=== PATIENT | female | born 1995 | race Caucasian/White ===

== ENCOUNTER 2017-07-26 17:55 | Emergency (ER) | payer BC, OTHER ==
[~2017-07-26] VITALS: Ht 165.1 cm; Wt 84.9 kg
[~2017-07-26 17:55] MED LIST: CHOL100010 PO; CYAN100T PO
[2017-07-26 17:58] VITALS: TEMP 36.7; Ht 165.1 cm; Wt 84.9 kg
[2017-07-26] MEDS ORDERED: KETOROLAC TROMETHAMINE 30 MG/ML VIAL IV STA (18:14)
[2017-07-26] MEDS ORDERED: DiphenhydrAMINE HCL 50 MG/ML VIAL IV STA (18:14)
[2017-07-26] MEDS ORDERED: PROCHLORPERAZINE 5 MG/ML 2 ML VIAL IV STA (18:14)
[2017-07-26] MEDS ORDERED: SODIUM CHLORIDE 0.9% 1000ML 1,000 ML IV ONE (18:15)
[2017-07-26] MEDS ORDERED: DEXAMETHASONE **PF** INJ 10 MG/ML VIAL IV ONE (18:15)
[2017-07-26] MEDS ORDERED: SUMA50TA15 PO (18:16)
[2017-07-26] MEDS ORDERED: BCPILLS PO (18:16)
[2017-07-26] MEDS ORDERED: HYDR-5688 PO (18:16)
[2017-07-26] MEDS ORDERED: FLUO10CA48 PO (18:16)
[2017-07-26 19:07] LABS: BASO % 0.6 %; BASO ABS # 0.05 K/uL (0-0.2); COMPLETE YES; EOS % 1.8 %; HEMATOCRIT 41.4 % (37-47); IG% 0.3 %; LYMPH % 25.2 %; LYMPH ABS # 2.27 K/uL (1.2-3.4); MEAN CELL VOLUME 86.8 fL (80-100); MEAN CORPUSCULAR HEMOGLOBIN 30.6 pg (25-34); MEAN CORPUSCULAR HGB CONC 35.3 g/dl (32-36); MONO % 7.2 %; NEUT % 64.9 %; PLATELET COUNT 213 K/uL (130-400); RED BLOOD COUNT 4.77 M/uL (4.2-5.4)
[2017-07-26 19:11] LABS: BUN/CREATININE RATIO 11.5 (10-20); CREATININE 0.96 mg/dl (0.60-1.20); POTASSIUM 3.6 mmol/L (3.5-5.1)
[2017-07-26 19:19] LABS: ALB/GLOB RATIO 0.9 (0.9-2); THYROID STIMULATING HORMONE 1.17 uIu/ml (0.300-4.500)
[2017-07-26 20:30] LABS: LYME DISEASE AB IGG NEG (NEG)
[2017-07-26 20:33] LABS: LYME DISEASE AB IGM EQUIVOCAL (NEG)
[2017-07-26] MEDS ORDERED: CEFTRIAXONE SOD INJ 1 GM ADDVIAL IV STA (20:45)
[2017-07-26 20:50] LABS: PREG INTERNAL NEGATIVE QC NEG CLEAR BACKGROUND
[2017-07-26 20:51] LABS: PREG INTERNAL POSITIVE QC POS CONTROL LINE; URINE APPEARANCE CLEAR (CLEAR); URINE BILIRUBIN NEG (NEG); URINE COLOR YELLOW; URINE EPITHELIAL CELL AUTO 0-5 /lpf (0-5); URINE NITRITE NEG (NEG); URINE SPECIFIC GRAVITY 1.005 (1.000-1.030); UROBILINOGEN NEG (NEG); ZZUR CULT IF INDIC CLEAN CATCH NO
[2017-07-26 20:52] LABS: MANUAL MICROSCOPIC REQUIRED? NO; REVIEW REQ? NO
--- NOTE | 2017-07-26 20:56 | DIAGNOSTIC IMAGING REPORT ---
HEAD CT NONCONTRAST CT DOSE: 537.48 mGy.cm HISTORY: Atypical headache TECHNIQUE: Multiaxial CT images of the head were performed without the use of intravenous contrast. Automated exposure control was utilized for this study. A dose lowering technique was utilized adhering to the principles of ALARA. Comparison: None. Findings: The paranasal sinuses and mastoid air cells are clear. The calvarium and skull base are intact. The ventricles and sulci are within normal limits. There is no mass, hematoma, midline shift, or acute infarct. Impression: No acute intracranial abnormality. Electronically signed by: Fuentes Gutierres M.D. 07/26/2017 8:55 PM Dictated Date/Time: 07/26/2017 8:48 PM
[2017-07-26 21:37] VITALS: BP 124/90; PULSE 78; O2SAT 97
[2017-07-26] MEDS ORDERED: DOXY100C PO (21:41)
--- NOTE | 2017-07-26 22:40 | EMERGENCY ROOM VISIT NOTE ---
History First contact with patient: 17:59 Chief Complaint: HEADACHE Stated Complaint: CASTORENA ACROSS EYES,BACK OF HEAD History of Present Illness The patient is a 22 year old female who presents to the Emergency Room with complaints of headache symptoms slowly worsening over the past several days. The patient states that she has had headache like symptoms off and on for the past few weeks. She has followed with her primary care physician for this, and was given Imitrex. She took the Imitrex both yesterday and today without relief. The patient has not had fever, chills, neck pain, chest pain, chest tightness, or shortness of breath. No vision changes or paresthesias. She does not recall injury or trauma and considers herself otherwise usually healthy. She does take Prozac, but has been on this medication for several months at the same dose. She denies chance of . She has not had previous imaging of her head, but does report there is some family history of migraine headaches. She rates her discomfort an 8/10. Review of Systems More than 10 systems were reviewed and otherwise negative with the exception of history of present illness. Past Medical/Surgical History No chronic medical disease Family History No pertinent family history Social History Smoking Status: Never Smoker Housing Status: lives with family Current/Historical Medications Scheduled Control Pills ( Control Pills), 1 TAB PO DAILY Doxycycline Hyclate (Vibramycin), 100 MG PO BID Fluoxetine (Prozac), 10 MG PO DAILY Scheduled PRN Hydrocodone/Acetaminophen 5MG/325MG ([place] 5MG/325MG), 1 TAB PO UD PRN for Pain Sumatriptan Succinate (Imitrex), 1 TAB PO PRN PRN for Migraine Physical Exam Vital Signs Date Time Temp Pulse Resp B/P (MAP) Pulse Ox O2 Delivery O2 Flow Rate FiO2 07/26/17 21:37 78 18 124/90 97 Room Air 07/26/17 20:56 72 20 129/98 98 Room Air 07/26/17 19:40 80 20 136/87 99 Room Air 07/26/17 17:58 36.7 80 20 156/117 99 Room Air Physical Exam VITALS: Vitals are noted on the nurse's note and reviewed by myself. Vital signs initially with hypertension that improved under our care GENERAL: Well-developed, well-nourished, white female who appears mildly uncomfortable but cooperative. HEAD: Normocephalic atraumatic. EARS: External ear normal. External auditory canals clear, tympanic membranes pearly colbert without erythema or effusion bilaterally. EYES: Pupils equal round and reactive to light and accommodation. Conjunctivae without injection, sclerae without icterus. Extraocular movements intact. NOSE: Patent, turbinates without inflammation or discharge. MOUTH: Mucous membranes moist. Tonsils are not enlarged. Pharynx without erythema, blood, or exudate. Uvula midline. Airway patent. NECK: Supple without nuchal rigidity. No lymphadenopathy. No thyromegaly. Cervical spine is nontender. No meningismus minutes. HEART: Regular rate and rhythm without murmurs gallops or rubs. LUNGS: Clear to auscultation bilaterally without wheezes, rales or rhonchi. No retractions or accessory muscle use. MUSCULOSKELETAL: No muscle atrophy, erythema, or edema noted. Full range of motion without joint tenderness in all extremities. NEURO: Patient was alert and oriented to person place and time. CN II through XII intact. Normal Romberg. Normal finger to nose. Normal rapid alternating movements. Medical Decision & Procedures ER Provider Diagnostic Interpretation: HEAD CT NONCONTRAST CT DOSE: 537.48 mGy.cm HISTORY: Atypical headache TECHNIQUE: Multiaxial CT images of the head were performed without the use of intravenous contrast. Automated exposure control was utilized for this study. A dose lowering technique was utilized adhering to the principles of ALARA. Comparison: None. Findings: The paranasal sinuses and mastoid air cells are clear. The calvarium and skull base are intact. The ventricles and sulci are within normal limits. There is no mass, hematoma, midline shift, or acute infarct. Impression: No acute intracranial abnormality. Laboratory Results 07/26/17 18:35 Red Blood Count 4.77, Mean Corpuscular Volume 86.8, Mean Corpuscular Hemoglobin 30.6, Mean Corpuscular Hemoglobin Concent 35.3, Neutrophils (%) (Auto) 64.9, Lymphocytes (%) (Auto) 25.2, Monocytes (%) (Auto) 7.2, Eosinophils (%) (Auto) 1.8, Basophils (%) (Auto) 0.6, Neutrophils # (Auto) 5.84, Lymphocytes # (Auto) 2.27, Monocytes # (Auto) 0.65, Eosinophils # (Auto) 0.16, Basophils # (Auto) 0.05 07/26/17 18:35 Test 07/26/17 18:35 07/26/17 20:30 White Blood Count 9.00 K/uL (4.8-10.8) Red Blood Count 4.77 M/uL (4.2-5.4) Hemoglobin 14.6 g/dL (12.0-16.0) Hematocrit 41.4 % (37-47) Mean Corpuscular Volume 86.8 fL (80-100) Mean Corpuscular Hemoglobin 30.6 pg (25-34) Mean Corpuscular Hemoglobin Concent 35.3 g/dl (32-36) Platelet Count 213 K/uL (130-400) Neutrophils (%) (Auto) 64.9 % Lymphocytes (%) (Auto) 25.2 % Monocytes (%) (Auto) 7.2 % Eosinophils (%) (Auto) 1.8 % Basophils (%) (Auto) 0.6 % Neutrophils # (Auto) 5.84 K/uL (1.4-6.5) Lymphocytes # (Auto) 2.27 K/uL (1.2-3.4) Monocytes # (Auto) 0.65 K/uL (0.11-0.59) Eosinophils # (Auto) 0.16 K/uL (0-0.5) Basophils # (Auto) 0.05 K/uL (0-0.2) Immature Granulocyte % (Auto) 0.3 % Immature Granulocyte # (Auto) 0.03 K/uL (0.00-0.02) Anion Gap 10.0 mmol/L (3-11) Est Creatinine Clear Calc Drug Dose 99.7 ml/min Estimated GFR () 98.0 Estimated GFR (Non- 84.5 BUN/Creatinine Ratio 11.5 (10-20) Calcium Level 9.0 mg/dl (8.5-10.1) Total Bilirubin 0.3 mg/dl (0.2-1) Aspartate Amino Transf (AST/SGOT) 26 U/L (15-37) Alanine Aminotransferase (ALT/SGPT) 25 U/L (12-78) Alkaline Phosphatase 65 U/L (45-117) Total Protein 8.2 gm/dl (6.4-8.2) Albumin 3.8 gm/dl (3.4-5.0) Globulin 4.4 gm/dl (2.5-4.0) Albumin/Globulin Ratio 0.9 (0.9-2) Thyroid Stimulating Hormone (TSH) 1.170 uIu/ml (0.300-4.500) Chemistry Specimen Hemolysis Lyme Disease IgG Antibody NEG (NEG) Urine Color YELLOW Urine Appearance CLEAR (CLEAR) Urine pH 8.0 (4.5-7.5) Urine Specific [place] 1.005 (1.000-1.030) Urine Protein NEG (NEG) Urine Glucose (UA) NEG (NEG) Urine Ketones NEG (NEG) Urine Occult Blood NEG (NEG) Urine Nitrite NEG (NEG) Urine Bilirubin NEG (NEG) Urine Urobilinogen NEG (NEG) Urine Leukocyte Esterase TRACE (NEG) Urine WBC (Auto) 1-5 /hpf (0-5) Urine RBC (Auto) 0-4 /hpf (0-4) Urine Hyaline Casts (Auto) 0 /lpf (0-5) Urine Epithelial Cells (Auto) 0-5 /lpf (0-5) Urine Bacteria (Auto) NEG (NEG) Urine Test NEG (NEG) Medications Administered Medications (Trade) Dose Ordered Sig/Wilbert Route Start Time Stop Time Status Last Admin Dose Admin Diphenhydramine HCl (Benadryl Inj) 50 mg NOW STAT IV 07/26/17 18:14 07/26/17 18:15 DC 07/26/17 19:06 50 MG Prochlorperazine Edisylate (Compazine Inj) 10 mg NOW STAT IV 07/26/17 18:14 07/26/17 18:15 DC 07/26/17 19:08 10 MG Sodium Chloride 1,000 ml @ 999 mls/hr Q1H1M ONCE IV 07/26/17 18:15 07/26/17 19:15 DC 07/26/17 19:09 999 MLS/HR Ketorolac Tromethamine (Toradol Inj) 30 mg NOW STAT IV 07/26/17 18:14 07/26/17 18:15 DC 07/26/17 19:08 30 MG Dexamethasone Sodium Phosphate (Dexamethasone Inj Pf) 10 mg NOW ONCE IV 07/26/17 18:15 07/26/17 18:16 DC 07/26/17 19:09 10 MG Ceftriaxone Sodium (Rocephin Inj) 1 gm NOW STAT IV 07/26/17 20:45 07/26/17 20:46 DC 07/26/17 20:54 1 GM ED Course Physical exam and history were performed. Nursing notes, EMR, and Medication List were personally reviewed. Patient appears to have headache symptoms off and on for the past few weeks. She is experiencing a gradually worsening headache today that is not relieved with her Imitrex at home. The patient is without signs of encephalitis or meningitis. She has not had previous imaging. IV access was established and labs were obtained. The patient was given 1 L normal saline, 30 mg IV Toradol, 10 mg IV Compazine, 50 mg IV Benadryl, and 10 mg IV Decadron. I did elect to perform a CT scan of her head. The patient's blood work is as above and was reviewed. He does not have a significantly elevated white blood cell count, gross anemia, bandemia, or significant electrolyte imbalance. Transaminases are nondiagnostic. She is not . Her Lyme disease screening is equivocal, and she was given 1 g IV Rocephin here in the department. CT scan does not show evidence of acute intracranial bleed or other pathology for her symptoms. On reevaluation the patient felt significantly improved. She was able to rest much more comfortably in her ER bed, and her blood pressure returned to normal. I did have a lengthy discussion with the patient and her family regarding her findings today. Her symptoms could be related to Lyme disease, and we will be awaiting confirmatory testing. In discussion with the patient, she does admit to having an unexplained rash about 2 weeks ago, and this may correlate strongly with Lyme disease. Because of these symptoms I will give her a course of doxycycline. She is to continue her at home medications otherwise, and she is to see her primary care physician for recheck. She was otherwise invited back to the ER with any new, worsening, or concerning symptoms. She voiced understanding and rated her discomfort a 0/10 at the time of departure. The chart was completed utilizing [employer] Speech Voice Recognition Software. Grammatical errors, random word insertions, pronoun errors, and incomplete sentences are an occasional consequence of this system due to software limitations, ambient noise, and hardware issues. Any formal questions or concerns about the content, text, or information contained within the body of this dictation should be directly addressed to the provider for clarification. . Medical Decision The differential diagnosis includes, but is not limited to: acute intracranial bleed, meningitis, encephalitis, mass or mass effect, sinusitis, infection, tumor, headache, temporal arteritis and carbon monoxide exposure, and migraine. Blood Pressure Screening Blood pressure disposition: Elevated BP felt to be situational, Referred to PCP Impression Primary Impression: Headache Additional Impression: Suspected Lyme disease Departure Information Dispostion Home / Self-Care Condition GOOD Prescriptions Doxycycline Hyclate (VIBRAMYCIN) 100 Mg Cap 100 MG PO BID for 21 Days, #42 CAP Prov: Zak Stephens PA-C 07/26/17 Forms HOME CARE DOCUMENTATION FORM, IMPORTANT VISIT INFORMATION Patient Instructions [facility] Additional Instructions You were seen and evaluated today on an emergency basis only. This is not a substitute for, or an effort to provide, complete comprehensive medical care. It is not possible to recognize and treat all injuries or illnesses in a single emergency department visit. For this reason it is recommended that you followup with your primary care physician this week for ongoing care and evaluation. Drink plenty of fluids and remain well hydrated. For baseline pain relief you may alternate ibuprofen and acetaminophen every 4 hours for pain control. Take 600 mg ibuprofen (Advil) and then 4 hours later take 1000 mg acetaminophen (Tylenol). Do not take more than 3000 mg acetaminophen in a single day. Doxycycline twice a day for 21 days. Avoid exposure to the sun/UV light while on this medication or use frequent application of SPF 50 or higher due to increased sensitivity to UV rays and high risk for severe grimes. TAKE THIS WITH FOOD. You are welcome to return to the emergency department anytime with new, worsening, or concerning symptoms. Problem Qualifiers
== END 2017-07-26 21:53 | disposition home or self-care (01) ==
LOC: C.EDB 17:57
DX: R51 Headache (principal); Z79.3 Long term (current) use of hormonal contraceptives